=== PATIENT | female | born 1990 | race African-American/Black ===

== ENCOUNTER 2022-10-12 04:45 | Inpatient (IN) | payer BC ==
[~2022-10-12 04:45] MED LIST: BUTORPHANOL TARTRATE 1 MG/ML VIAL IVPB ONE; ELECTROLYTE-148 SOLN 1,000 ML IV SCH; PROMETHAZINE HCL 25 MG/1 ML VIAL IVPB ONE
[2022-10-12] MEDS ORDERED: BUTORPHANOL TARTRATE 1 MG/ML VIAL ONE (05:25)
[2022-10-12] MEDS ORDERED: PROMETHAZINE HCL 25 MG/1 ML VIAL ONE (05:26)
[2022-10-12 05:53] LABS: INR 0.95 (0.83-1.09)
[2022-10-12 05:55] LABS: ACTIVATED PTT 26.5 SECONDS (25.2-36.5)
[2022-10-12 06:06] LABS: BASO % 1.1 % (0-2.0); EOS % 0.3 % (0-4.5); HEMATOCRIT 43.2 % (32.4-45.2); LYMPH % 42.5 % (8-40); MCH 29.4 pg (25.7-33.7); MCHC 32.5 g/dl (32.0-36.0); MEAN CELL VOLUME 90.3 fl (80-96); MEAN PLT VOLUME 8.6 fl (7.5-11.1); MONO % 6.5 % (3.8-10.2); NEUT % 49.6 % (42.8-82.8); PLATELET COUNT 312 10^3/uL (134-434); POTASSIUM 4.2 mmol/L (3.5-5.1); RBC 4.78 M/mm3 (3.60-5.2); RDW 14.2 % (11.6-15.6); WHITE BLOOD COUNT 7.1 K/mm3 (4.0-10.0)
[2022-10-12 06:07] LABS: CALCIUM 9.6 mg/dL (8.5-10.1)
[2022-10-12 06:08] LABS: BLOOD UREA NITROGEN 5.3 mg/dL (7-18)
[2022-10-12 06:10] LABS: CREATININE 0.7 mg/dL (0.55-1.3)
[2022-10-12 06:47] VITALS: BMI 30.8
[2022-10-12 07:36] LABS: ALBUMIN 2.8 g/dl (3.4-5.0)
[2022-10-12 07:40] LABS: BILIRUBIN,TOTAL 0.3 mg/dL (0.2-1)
[2022-10-12 07:41] LABS: TOT PROT 6.8 g/dl (6.4-8.2)
[2022-10-12] MEDS ORDERED: LIDOCAINE HCL 1% PRESERVATIVE FREE - 30ML VIAL ONE (07:44)
[2022-10-12] MEDS ORDERED: OXYTOCIN 20 UNITS in 0.9% NS 20 UNIT/1,000 ML INFUS.BAG IV ONE ×2 (07:44→10:09)
[2022-10-12] MEDS ORDERED: oxyCODONE HCL 5 MG TABLET PO PRN (07:58)
[2022-10-12] MEDS ORDERED: WITCH HAZEL 50% (TUCKS) 40 PAD/JAR PAD TP PRN (07:58)
[2022-10-12] MEDS ORDERED: BENZOCAINE 28 GM HEMORRHOIDAL OINTMENT TP PRN (07:58)
[2022-10-12] MEDS ORDERED: BENZOCAINE 20% 57 GM BOTTLE TP PRN (07:58)
[2022-10-12] MEDS ORDERED: ACETAMINOPHEN 325 MG TABLET (FP) PO PRN (07:58)
[2022-10-12] MEDS ORDERED: METHYLERGONOVINE MALEATE 0.2 MG/1 ML AMP IM PRN (07:58)
[2022-10-12] MEDS ORDERED: BISACODYL 10 MG SUPP.RECT RC PRN (07:58)
[2022-10-12] MEDS ORDERED: ELECTROLYTE-148 SOLN 1,000 ML IV SCH (08:00)
[2022-10-12] MEDS ORDERED: OXYTOCIN 20 UNITS in 0.9% NS 20 UNIT/1,000 ML INFUS.BAG IV SCH (08:00)
[2022-10-12] MEDS ORDERED: NALOXONE HCL 0.4 MG/ML VIAL IVPUSH PRN (08:15)
[2022-10-12] MEDS ORDERED: FENTANYL/BUPIVACAINE/NS/PF - PCEA - 50 ML DISP.SYRIN EP SCH (08:15)
[2022-10-12] MEDS ORDERED: IBUPROFEN 600 MG TABLET (FP) PO ONE (09:57)
[2022-10-12] MEDS: PRENATAL VITAMINS W/ FOLIC ACID TABLET (FP) PO SCH (10:00)
[2022-10-12] MEDS: IBUPROFEN 600 MG TABLET (FP) PO PRN ×4 (10:00→23:56)
[2022-10-12 11:44] LABS: POTASSIUM 4.4 mmol/L (3.5-5.1)
[2022-10-12 11:47] LABS: CALCIUM 9.5 mg/dL (8.5-10.1)
[2022-10-12 11:48] LABS: ALBUMIN 2.7 g/dl (3.4-5.0); BLOOD UREA NITROGEN 5.8 mg/dL (7-18)
[2022-10-12 11:50] LABS: CREATININE 0.7 mg/dL (0.55-1.3)
[2022-10-12 11:52] LABS: BILIRUBIN,TOTAL 0.2 mg/dL (0.2-1); TOT PROT 6.8 g/dl (6.4-8.2)
[2022-10-12] MEDS: FERROUS SO4 325 MG TABLET (FP) PO SCH (17:59)
[2022-10-13 08:02] LABS: BASO % 0.3 % (0-2.0); HEMATOCRIT 32.4 % (32.4-45.2); HEMOGLOBIN 10.5 GM/dL (10.7-15.3); LYMPH % 31.2 % (8-40); MCH 29.7 pg (25.7-33.7); MCHC 32.5 g/dl (32.0-36.0); MEAN CELL VOLUME 91.4 fl (80-96); MEAN PLT VOLUME 8.5 fl (7.5-11.1); MONO % 5.3 % (3.8-10.2); NEUT % 62.2 % (42.8-82.8); PLATELET COUNT 232 10^3/uL (134-434); RBC 3.55 M/mm3 (3.60-5.2); WHITE BLOOD COUNT 8.4 K/mm3 (4.0-10.0)
[2022-10-13] MEDS: FERROUS SO4 325 MG TABLET (FP) PO SCH (09:34)
[2022-10-13] MEDS: PRENATAL VITAMINS W/ FOLIC ACID TABLET (FP) PO SCH (09:34)
[2022-10-13] MEDS: IBUPROFEN 600 MG TABLET (FP) PO PRN (14:34)
[2022-10-13] MEDS ORDERED: SENNOSIDES/DOCUSATE COMBO (SENNA PLUS) TABLET (UD) PO PRN (22:00)
[2022-10-13 23:00] VITALS: RESP 18
[2022-10-14] MEDS: FERROUS SO4 325 MG TABLET (FP) PO SCH (10:00)
[2022-10-14] MEDS: IBUPROFEN 600 MG TABLET (FP) PO PRN (10:00)
[2022-10-14] MEDS: PRENATAL VITAMINS W/ FOLIC ACID TABLET (FP) PO SCH (10:00)
[2022-10-14 10:29] VITALS: BP 117/79; PULSE 93; TEMP 97.8
== END 2022-10-14 13:00 | disposition home or self-care (01) | DRG 807 ==
LOC: JLDR 04:45 → J3W 10:30
PROVIDERS: ADMIT Obstetrics & Gynecology; ATTEND Obstetrics & Gynecology
PROC: 10E0XZZ Delivery of Products of Conception, External Approach (ICD-10-PCS; principal; 2022-10-12)
PROC: 0HQ9XZZ Repair Perineum Skin, External Approach (ICD-10-PCS; 2022-10-12)
DX: O70.0 First degree perineal laceration during delivery (principal); Z37.0 Single live birth; Z3A.38 38 weeks gestation of pregnancy
CPT/HCPCS: 36415; 80048; 80053; 85025; 85610; 85730; 86780; 86850; 86900; 86901